=== PATIENT | female | born 1985 | race Caucasian/White ===

== ENCOUNTER → 2018-06-26 16:50 | Outpatient (CLI) | payer OTHER, SELFPAY ==
[2016-10-24 18:59] VITALS: BMI 33.3
[2018-06-26 18:59] LABS: Chlamydia Trachomatis by PCR Negative (Negative); Neisserai gonorrhoeae by PCR Negative (Negative); Probe Check PASS; Sample Adequacy Control PASS; Specimen Processing Control PASS
[2018-07-03 11:19] LABS: HPV APTIMA, High Risk Negative (Negative)
== END ==
PROVIDERS: Referring Provider Obstetrics & Gynecology; Visit Provider Obstetrics & Gynecology
DX: Z32.01 Encounter for pregnancy test, result positive (principal); Z12.4 Encounter for screening for malignant neoplasm of cervix; Z11.3 Encounter for screening for infections with a predominantly sexual mode of transmission
CPT/HCPCS: 87491; 87591; 87624; 88175; G0145

== ENCOUNTER → 2018-07-21 10:02 | Outpatient (CLI) | payer OTHER, SELFPAY ==
[2016-10-24 18:59] VITALS: BMI 33.3
[2018-07-21 10:55] LABS: Color, Urine Yellow (Yellow); Glucose, Dipstick Normal (Normal); Ketone-Dipstick Negative (Negative); Leukocyte Esterase-Dipstick Negative /ul (Negative); Nitrite-Dipstick Negative (Negative); Occult Blood-Urine Negative /ul (Negative); Protein-Dipstick Negative (Negative); Specific Gravity, Urine 1.015 (1.002-1.030); Urine Bilirubin Dipstick Negative (Negative); Urine Clarity Clear (Clear); Urine Urobilinogen Normal (Normal); Urine pH 6.5 (5.0 - 8.0)
[2018-07-21 11:01] LABS: Absolute Lymphocyte Count 2.16 X10^3/ul (0.83-4.51); Absolute Neutrophil Count 4.6 X10^3/uL (2.0-7.7); Basophil# 0.02 X10^3/uL; Basophil% 0.3 % (0-1); Eosinophil# 0.04 X10^3/uL; Eosinophils% 0.5 % (0-5); Hematocrit 35.3 % (37-47); Hemoglobin 11.9 g/dl (12.0-15.0); Lymphocyte # 2.16 X10^3/ul (4.0); Lymphocyte % 29.2 % (19-41); Mean Corp Hgb Conc 33.7 g/gl (32-36); Mean Corpuscular Hgb 29.8 pg (27.0-32.0); Mean Corpuscular Volume 88.3 fL (81-99); Mean Platelet Vol. 8.9 fl (6.2-12.0); Monocyte# 0.59 X10^3/uL; Neutrophil # 4.56 X10^3/uL (2.7-7.7); Neutrophil % 61.7 % (47-70); Platelet Count 228 K/mm3 (150-450); RBC Distribution Width CV 12.8 % (11.6-14.6); RBC Distribution Width SD 41.1 fl (35.1-43.9); White Blood Count 7.4 K/mm3 (4.4-11.0)
[2018-07-21 11:03] LABS: POSITIVE COUNT NO; POSITIVE DIFFERENTIAL NO; POSITIVE MORPHOLOGY NO
[2018-07-21 11:25] LABS: Thyroid Stim Hormone (TSH) 1.88 uIU/mL (0.358-3.74)
[2018-07-21 12:05] LABS: HIV - WCH Non-Reactive (Nonreactive); Rubella IgG 65.9 IU/mL; Vitamin D,25 Hydroxy 19.6 ng/mL (29.95-100.01)
[2018-07-22 12:06] LABS: HEPATITIS B SURFACE AG Negative (Negative); Hep C Antibodies <0.1 s/co ratio (0.0-0.9)
[2018-07-23 23:33] LABS: Prenatal RPR NONREACTIVE (NONREACTIVE)
== END ==
PROVIDERS: Visit Provider Obstetrics & Gynecology
DX: Z34.81 Encounter for supervision of other normal pregnancy, first trimester (principal)
CPT/HCPCS: 36415; 81002; 82306; 84443; 85025; 86703; 86762; 86803; 87340